=== PATIENT | male | born 1995 | race Caucasian/White ===

== ENCOUNTER 2019-07-30 12:33 | Emergency (ER) | payer MEDICAID ==
[~2019-07-30] VITALS: Ht 188 cm; Wt 77.1 kg
[2019-07-30] MEDS ORDERED: NACL 0.9% 1,000 ML IV SCH (12:44)
[2019-07-30] MEDS ORDERED: PANTOPRAZOLE 40 MG INJ VIAL IVP ONE (12:45)
[2019-07-30] MEDS ORDERED: ONDANSETRON 4 MG/2 ML VIAL IVP ONE (12:45)
[2019-07-30] MEDS ORDERED: ALUMINUM HYD/MAG/SIMETHICONE 30 ML, DICYCLOMINE HCL LIQUID 20 MG, LIDOCAINE VISCOUS 2% ... PO ONE ×3 (12:45)
[2019-07-30] MEDS ORDERED: MORPHINE SULFATE 4 MG/ML SYR IVP ONE (12:45)
[2019-07-30 12:48] VITALS: BP 125/75
[2019-07-30] MEDS ORDERED: DICYCLOMINE HCL LIQUID 10 MG/5 ML UDC ONE (12:53)
[2019-07-30] MEDS ORDERED: LIDOCAINE VISCOUS 2% 20 ML UDC ONE (12:53)
[2019-07-30] MEDS ORDERED: ALUMINUM HYD/MAG/SIMETHICONE 30 ML UDC ONE (12:53)
[2019-07-30 13:14] LABS: BASOPHILS % (AUTO) 0.4 % (0.0-2.0); EOSINOPHILS % (AUTO) 0.2 % (0.0-4.0); HEMATOCRIT 47.4 % (36-52); HEMOGLOBIN 16.2 g/dL (12.0-18.0); LYMPHOCYTES % (AUTO) 18.6 % (20.5-51.1); MEAN CORPUSCULAR HEMOGLOBIN 30 pg (27-31); MEAN CORPUSCULAR HGB CONC 34 g/dL (33-37); MEAN CORPUSCULAR VOLUME 88.6 fL (80-94); MONOCYTES # (AUTO) 0.4 K/uL (0.8-1.0); MONOCYTES % (AUTO) 6.8 % (1.7-9.3); PLATELET COUNT (AUTO) 249 K/uL (140-450); RED BLOOD CELL COUNT(AUTO) 5.34 MIL/uL (4.20-6.10); RED CELL DISTRIBUTION WIDTH 12.9 % (11.6-13.7); WHITE BLOOD COUNT (AUTO) 5.4 K/uL (4.8-10.8)
[2019-07-30 13:29] LABS: ALBUMIN 4.3 g/dL (3.4-5.0); ANION GAP 12.2 (8-16); CARBON DIOXIDE 28.4 mmol/L (21-32); POTASSIUM 3.6 mmol/L (3.5-5.1); TOTAL BILIRUBIN 1.1 mg/dL (0.0-1.0)
[2019-07-30 14:57] VITALS: BP 111/78
== END 2019-07-30 14:56 | disposition home or self-care (01) ==
LOC: MED 12:33
DX: K58.9 Irritable bowel syndrome, unspecified (principal); K29.70 Gastritis, unspecified, without bleeding; R10.9 Unspecified abdominal pain; R11.2 Nausea with vomiting, unspecified; F12.90 Cannabis use, unspecified, uncomplicated
CPT/HCPCS: 36415; 74021; 80053; 82150; 83690; 85025; 96361; 96374; 96375; 99284; C9113; J2270; J2405; J7030; 96376

== ENCOUNTER 2019-08-18 12:43 | Emergency (ER) | payer MEDICAID ==
[~2019-08-18] VITALS: Ht 170.2 cm; Wt 72.6 kg
--- NOTE | 2019-08-18 12:47 | NUR ---
Pt w/c assisted to bed 12.
[2019-08-18 12:49] VITALS: BP 127/74
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
--- NOTE | 2019-08-18 12:55 | NUR ---
ERMD AT BEDSIDE
[2019-08-18] MEDS ORDERED: ONDANSETRON 4 MG/2 ML VIAL IVP ONE (13:00)
[2019-08-18] MEDS ORDERED: NACL 0.9% 1,000 ML IV ONE (13:00)
[2019-08-18] MEDS ORDERED: PANTOPRAZOLE 40 MG INJ VIAL IVP ONE (13:00)
--- NOTE | 2019-08-18 13:30 | NUR ---
BLOOD DRAWN TAKEN TO LAB
[2019-08-18 13:51] LABS: BASOPHILS % (AUTO) 0.2 % (0.0-2.0); EOSINOPHILS # (AUTO) 0.1 K/uL (0-0.4); EOSINOPHILS % (AUTO) 0.8 % (0.0-4.0); HEMATOCRIT 49.8 % (36-52); HEMOGLOBIN 16.7 g/dL (12.0-18.0); LYMPHOCYTES # (AUTO) 0.5 K/uL (2.0-11.5); LYMPHOCYTES % (AUTO) 4.9 % (20.5-51.1); MEAN CORPUSCULAR HEMOGLOBIN 30 pg (27-31); MEAN CORPUSCULAR HGB CONC 34 g/dL (33-37); MEAN CORPUSCULAR VOLUME 89.3 fL (80-94); MONOCYTES # (AUTO) 0.6 K/uL (0.8-1.0); MONOCYTES % (AUTO) 5.2 % (1.7-9.3); NEUTROPHILS # (AUTO) 9.9 K/uL (1.8-7.7); NEUTROPHILS % (AUTO) 88.9 % (42.2-75.2); PLATELET COUNT (AUTO) 226 K/uL (140-450); RED BLOOD CELL COUNT(AUTO) 5.57 MIL/uL (4.20-6.10); RED CELL DISTRIBUTION WIDTH 12.8 % (11.6-13.7); WHITE BLOOD COUNT (AUTO) 11.2 K/uL (4.8-10.8)
[2019-08-18 14:11] LABS: ALBUMIN 4.7 g/dL (3.4-5.0); ANION GAP 11.7 (8-16); CARBON DIOXIDE 29.6 mmol/L (21-32); CREATININE 0.9 mg/dL (0.6-1.3); POTASSIUM 4.3 mmol/L (3.5-5.1)
[2019-08-18] MEDS ORDERED: PROCHLORPERAZINE 10 MG/2 ML VIAL IVP ONE (14:30)
[2019-08-18 15:37] VITALS: BP 115/71
--- NOTE | 2019-08-18 15:38 | NUR ---
Patient discharged with v/s stable. Written and verbal after care instructions given and explained. Patient alert, oriented and verbalized understanding of instructions. Ambulatory with steady gait. All questions addressed prior to discharge. ID band removed. Patient advised to follow up with PMD. Rx of REGLAN, PROTONIX given. Patient educated on indication of medication including possible reaction and side effects. Opportunity to ask questions provided and answered.
== END 2019-08-18 15:37 | disposition home or self-care (01) ==
LOC: MED 12:43
DX: K29.71 Gastritis, unspecified, with bleeding (principal); J45.909 Unspecified asthma, uncomplicated; F12.10 Cannabis abuse, uncomplicated
CPT/HCPCS: 36415; 80053; 83690; 85025; 96361; 96374; 96375; 99284; C9113; J0780; J2405; J7030

== ENCOUNTER 2020-01-09 12:44 | Emergency (ER) | payer MEDICAID ==
[~2020-01-09] VITALS: Ht 190.5 cm; Wt 78.5 kg
[2020-01-09 12:48] VITALS: BP 135/75
[2020-01-09] MEDS ORDERED: IBUPROFEN 600 MG TAB PO ONE (12:55)
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
--- NOTE | 2020-01-09 13:14 | NUR ---
Radha valenzuela in [facility] - 01/09/20 at 1318 by [facility] [place] REF#[id number]
--- NOTE | 2020-01-09 13:14 | NUR ---
[facility] CALLED, REF#[id number]. THEY STATE IF PT WANTS TO PRESS CHARGES HE MUST COME TO OFFICE HIMSELF. PT MADE AWARE
--- NOTE | 2020-01-09 14:33 | NUR ---
PT TAKEN TO CT. PT ALERT AND AWAKE, BREATHING EVEN AND UNLABORED.
[2020-01-09 15:13] LABS: BASOPHILS % (AUTO) 0.2 % (0.0-2.0); EOSINOPHILS % (AUTO) 0.7 % (0.0-4.0); HEMATOCRIT 43.2 % (36-52); HEMOGLOBIN 14.7 g/dL (12.0-18.0); LYMPHOCYTES # (AUTO) 1.4 K/uL (2.0-11.5); LYMPHOCYTES % (AUTO) 27.4 % (20.5-51.1); MEAN CORPUSCULAR HEMOGLOBIN 30 pg (27-31); MEAN CORPUSCULAR HGB CONC 34 g/dL (33-37); MEAN CORPUSCULAR VOLUME 88.5 fL (80-94); MONOCYTES # (AUTO) 0.4 K/uL (0.8-1.0); MONOCYTES % (AUTO) 8.1 % (1.7-9.3); NEUTROPHILS # (AUTO) 3.4 K/uL (1.8-7.7); NEUTROPHILS % (AUTO) 63.6 % (42.2-75.2); PLATELET COUNT (AUTO) 248 K/uL (140-450); RED BLOOD CELL COUNT(AUTO) 4.88 MIL/uL (4.20-6.10); RED CELL DISTRIBUTION WIDTH 13.2 % (11.6-13.7); WHITE BLOOD COUNT (AUTO) 5.3 K/uL (4.8-10.8)
[2020-01-09 15:40] LABS: ALBUMIN 4.2 g/dL (3.4-5.0); ANION GAP 11.5 (8-16); CARBON DIOXIDE 29.1 mmol/L (21-32); CREATININE 0.9 mg/dL (0.6-1.3); POTASSIUM 3.6 mmol/L (3.5-5.1); THYROID STIMULATING HORMONE 0.85 uIU/mL (0.34-3.74); TOTAL BILIRUBIN 0.6 mg/dL (0.0-1.0)
[2020-01-09 16:00] VITALS: BP 116/70
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
== END 2020-01-09 16:00 | disposition home or self-care (01) ==
LOC: MED 12:44
DX: S00.93XA Contusion of unspecified part of head, initial encounter (principal); S09.90XA Unspecified injury of head, initial encounter; R42 Dizziness and giddiness; M54.6 Pain in thoracic spine; J45.909 Unspecified asthma, uncomplicated; Y08.89XA Assault by other specified means, initial encounter; Y93.89 Activity, other specified; Y92.89 Other specified places as the place of occurrence of the external cause; Y99.8 Other external cause status
CPT/HCPCS: 36415; 70450; 71045; 80053; 83735; 84443; 85025; 93005; 99285; Q0092